=== PATIENT | female | born 1985 | race Caucasian/White ===

== ENCOUNTER 2018-02-16 13:08 | Emergency (ER) | payer MEDICAID ==
[~2018-02-16] VITALS: Ht 172.7 cm; Wt 92.5 kg
[~2018-02-16 13:08] MED LIST: ATOR10TA87 PO; ESCI10TA45 PO; GENT5DRO4 EACHEYE; HYDR-568 PO; HYDR-569 PO; MAGN296S50 PO; METH500T PO; SYN0.025T PO
[2018-02-16 13:17] VITALS: BP 128/66
== END 2018-02-16 14:06 | disposition home or self-care (01) ==
LOC: ER 13:08
DX: O26.893 Other specified pregnancy related conditions, third trimester (principal); G56.03 Carpal tunnel syndrome, bilateral upper limbs; E78.00 Pure hypercholesterolemia, unspecified; E03.9 Hypothyroidism, unspecified; F15.10 Other stimulant abuse, uncomplicated; Z3A.35 35 weeks gestation of pregnancy; Z88.1 Allergy status to other antibiotic agents; Z88.8 Allergy status to other drugs, medicaments and biological substances
CPT/HCPCS: 29125; 99284

== ENCOUNTER → 2021-04-10 | Emergency (ER) | payer MEDICAID ==
[~2021-04-10] VITALS: Ht 175.3 cm; Wt 97.7 kg
[~2021-04-10] MED LIST changes: +HYDR-4383 PO; +HYDR-4384 PO; -HYDR-568 PO; -HYDR-569 PO; -MAGN296S50 PO; +MAGN296S70 PO
[2021-04-10 17:05] VITALS: BP 111/60
== END | disposition home or self-care (01) ==
LOC: ER 16:42
DX: S92.514A Nondisplaced fracture of proximal phalanx of right lesser toe(s), initial encounter for closed fracture (principal); E78.00 Pure hypercholesterolemia, unspecified; E03.9 Hypothyroidism, unspecified; E07.9 Disorder of thyroid, unspecified; G89.29 Other chronic pain; F15.90 Other stimulant use, unspecified, uncomplicated; Z90.49 Acquired absence of other specified parts of digestive tract; Z98.891 History of uterine scar from previous surgery; Z79.899 Other long term (current) drug therapy; Z88.8 Allergy status to other drugs, medicaments and biological substances; W22.8XXA Striking against or struck by other objects, initial encounter; Y93.89 Activity, other specified; Y92.89 Other specified places as the place of occurrence of the external cause; Y99.8 Other external cause status
CPT/HCPCS: 73630; 99283

== ENCOUNTER → 2021-04-27 | Emergency (ER) | payer MEDICAID ==
[~2021-04-27] VITALS: Ht 172.7 cm; Wt 97.7 kg
[2021-04-27 10:09] VITALS: BP 116/71
== END | disposition left against medical advice (07) ==
LOC: ER 09:37
DX: K13.79 Other lesions of oral mucosa (principal); Z53.21 Procedure and treatment not carried out due to patient leaving prior to being seen by health care provider

== ENCOUNTER 2021-07-18 07:30 | Emergency (ER) | payer MEDICAID ==
[~2021-07-18] VITALS: Ht 172.7 cm; Wt 105.0 kg
[2021-07-18 07:43] VITALS: BP 134/82
[2021-07-18] MEDS ORDERED: LIDO20SO16 PO (09:27)
== END 2021-07-18 09:28 | disposition home or self-care (01) ==
LOC: ER 07:31
DX: J02.9 Acute pharyngitis, unspecified (principal); B34.9 Viral infection, unspecified; R05.9 Cough, unspecified; E78.00 Pure hypercholesterolemia, unspecified; E03.9 Hypothyroidism, unspecified; G89.29 Other chronic pain; F41.9 Anxiety disorder, unspecified; F32.9 Major depressive disorder, single episode, unspecified; F15.90 Other stimulant use, unspecified, uncomplicated; Z90.89 Acquired absence of other organs; Z98.890 Other specified postprocedural states; Z88.6 Allergy status to analgesic agent; Z88.8 Allergy status to other drugs, medicaments and biological substances; Z79.2 Long term (current) use of antibiotics; Z79.899 Other long term (current) drug therapy
CPT/HCPCS: 71045; 99283

== ENCOUNTER 2021-08-28 13:56 | Emergency (ER) | payer MEDICAID ==
[~2021-08-28] VITALS: Ht 172.7 cm; Wt 103.6 kg
[~2021-08-28 13:56] MED LIST changes: +LIDO20SO16 PO
[2021-08-28 14:06] VITALS: BP 124/67
[2021-08-28] MEDS ORDERED: MUPI22OI30 TOP (14:29)
[2021-08-28] MEDS ORDERED: AMOX-422 PO (14:29)
== END 2021-08-28 14:35 | disposition home or self-care (01) ==
LOC: ER 13:56
DX: L01.09 Other impetigo (principal); R23.8 Other skin changes; E78.00 Pure hypercholesterolemia, unspecified; E03.9 Hypothyroidism, unspecified; G89.29 Other chronic pain; F41.9 Anxiety disorder, unspecified; F32.9 Major depressive disorder, single episode, unspecified; F15.90 Other stimulant use, unspecified, uncomplicated; Z90.89 Acquired absence of other organs; Z98.890 Other specified postprocedural states; Z88.6 Allergy status to analgesic agent; Z88.8 Allergy status to other drugs, medicaments and biological substances; Z79.2 Long term (current) use of antibiotics; Z79.899 Other long term (current) drug therapy
CPT/HCPCS: 99283

== ENCOUNTER 2025-07-28 00:28 | Emergency (ER) | payer MEDICAID ==
[~2025-07-28] VITALS: Ht 172.7 cm; Wt 88.0 kg
[~2025-07-28 00:28] MED LIST changes: +GEN0.3OS EACHEYE; -GENT5DRO4 EACHEYE; -MAGN296S70 PO; +MAGN296S89 PO
--- NOTE | 2025-07-28 03:14 | Physician Documentation ---
History of Present Illness General Chief Complaint: Eye Pain Stated Complaint: EYE PAIN Time Seen by MD: 03:09 Primary Medical Doctor: WILLEM TREVINO History of Present Illness Initial Comments The patient is a 40-year-old female who works as [employer] who has had worsening right eye pain and redness for the last day states he has got worse over last 6 hours. The patient denies any trauma. The patient has had some tearing from the right eye. The patient's symptoms are mild to moderate and persistent. The patient denies any visual changes or blurred vision. Medication Reconciliation Allergies: Coded Allergies: levothyroxine sodium (Verified Allergy, Unknown, 02/06/15) tramadol (Verified Allergy, Unknown, 02/06/15) Scheduled Atorvastatin Calcium* (Lipitor*), 10 MG PO QAM, (Reported) Escitalopram Oxalate* (Lexapro*), 30 MG PO DAILY, (Reported) Gentamicin Sulfate (Gentak), 2 DROP EACHEYE QID Hydrocodone Bit/Acetaminophen ([place] 7.5-325 Tablet), 1 EACH PO TID, (Reported) Levothyroxine Sodium* (Synthroid*), 50 MCG PO DAILY, (Reported) Lidocaine Hcl (Xylocaine Viscous), 5 ML PO BID Magnesium Citrate (Magnesium Citrate), 300 ML PO DRINK X 1 Methocarbamol (Robaxin), 1 TAB PO Q8H Scheduled PRN Hydrocodone/Acetaminophen ([place] 5-325 Tablet), 1 TABLET PO Q4H PRN for pain Past Medical History Past Medical History: High Cholesterol, Hypothyroidism, Thyroid (unspecified), *MUSCULOSKELETAL*, Chronic Back Pain, Anxiety, Depression Past Surgical History: appendectomy, Other Past Family History: NONCONTRIBUTORY Smoking: Cigarettes Alcohol Use: None Drug Use: methamphetamine Lives with: Family Lives In: Home Occupation: disabled Review of Systems All Other Systems at this time: Reviewed and Negative Physical Exam Physical Exam Vital Signs: Temperature: 97.5, Source: Temporal, Heart Rate: 78, Respiratory Rate: 16, BP: 122/78, Pulse Oximetry: 98, Weight: 88.000 Physical Exam VITALS: Reviewed and as above. GENERAL: Alert, no apparent distress. HEENT: Normocephalic, atraumatic, PERRL, EOMI, dry mucosa, the patient has conjunctival erythema with some slight eyelid swelling to the right eye RESPIRATORY: Lungs clear, normal breath sounds, no respiratory distress. CHEST: No accessory muscle use, no retractions CV: Regular rate, rhythm, no edema, no murmur, No: JVD GI: Soft, non-tender, bowels sounds present, no rebound, guarding, or rigidity BACK: No CVA tenderness, or swelling MUSCULOSKELETAL: No deformities, no edema SKIN: Warm and dry, no rash NEURO: Oriented x4, No motor or sensory deficit PSYCH: Normal mood and affect, no agitation Progress Results/Orders Results/Orders Orders - FAUSTINA SIMMONS MD Ciprofloxacin Ophth Drops (Ciloxan 0.3% (07/28/25 03:15) Naphazoline/Pheniramine Eye (Visine-A Ey (07/28/25 03:15) Vital Signs 07/28/25 01:03 Temp 97.5 Pulse 78 Resp 16 B/P (MAP) 122/78 Pulse Ox 98 Medical Decision Making Findings The patient has a clinical conjunctivitis patient will be given some amoxicillin and Naphcon-A drops the patient will be advised to stay off work until her eyes cleared. Departure Disposition: 01 HOME / SELF CARE / HOMELESS Impression: Primary Impression: Conjunctivitis Qualified Codes: H10.31 - Unspecified acute conjunctivitis, right eye Discharge Instructions: Bacterial Conjunctivitis, Adult Additional Instructions: Use the Ciloxan drops every 4 hours two drops while awake for the next five days, use the Naphcon drops 2 drops every 6 hours for irritation and redness. He can return to work when your eye has cleared in his no longer red. Referrals: NO PRIMARY CARE PROVIDER (PCP) FAUSTINA SIMMONS MD Jul 28, 2025 03:14
[2025-07-28] MEDS ORDERED: naphazoline/pheniramine eye 1 DROP BOTTLE RIGHTEYE PRN (03:15)
[2025-07-28] MEDS: ciprofloxacin 0.3% 2.5ml ophthalmic solution RIGHTEYE ONE (03:26)
[2025-07-28 03:33] VITALS: BP 120/76; PULSE 74; RESP 18; TEMP 98.6; O2SAT 99
== END 2025-07-28 03:35 | disposition home or self-care (01) ==
LOC: ER 00:28
DX: H10.9 Unspecified conjunctivitis (principal); G89.29 Other chronic pain; E78.00 Pure hypercholesterolemia, unspecified; E03.9 Hypothyroidism, unspecified; F17.210 Nicotine dependence, cigarettes, uncomplicated; F15.90 Other stimulant use, unspecified, uncomplicated; F41.9 Anxiety disorder, unspecified; F32.A Depression, unspecified; Z90.49 Acquired absence of other specified parts of digestive tract; Z88.5 Allergy status to narcotic agent; Z88.8 Allergy status to other drugs, medicaments and biological substances; Z79.899 Other long term (current) drug therapy; Z98.890 Other specified postprocedural states
CPT/HCPCS: 99282; 99283

== ENCOUNTER 2025-09-02 08:33 | Emergency (ER) | payer MEDICAID ==
[~2025-09-02] VITALS: Ht 172.7 cm; Wt 84.1 kg
[2025-09-02 08:49] VITALS: BP 100/67; PULSE 77; RESP 18; O2SAT 98
--- NOTE | 2025-09-02 10:29 | Physician Documentation ---
History of Present Illness ~ Chief Complaint: Eye Pain Stated Complaint: R EYE PAIN Time Seen by MD: 09:19 Primary Medical Doctor: WILLEM TREVINO [facility] This is a 40-year-old female who presents with one day of nonpainful redness to her right eye, onset upon waking, patient reports no other acute symptoms or concerns including no itching, discharge, fever, blurred vision, light sens itivity, pain, or recent illness. Reports she is a contact lens wear and did sleep with her contacts in the night before the redness began. Medication Reconciliation Allergies: Coded Allergies: levothyroxine sodium (Verified Allergy, Unknown, 02/06/15) tramadol (Verified Allergy, Unknown, 02/06/15) Scheduled Atorvastatin Calcium* (Lipitor*), 10 MG PO QAM, (Reported) Escitalopram Oxalate* (Lexapro*), 30 MG PO DAILY, (Reported) Gentamicin Sulfate (Gentak), 2 DROP EACHEYE QID Hydrocodone Bit/Acetaminophen ([place] 7.5-325 Tablet), 1 EACH PO TID, (Reported) Levothyroxine Sodium* (Synthroid*), 50 MCG PO DAILY, (Reported) Lidocaine Hcl (Xylocaine Viscous), 5 ML PO BID Magnesium Citrate (Magnesium Citrate), 300 ML PO DRINK X 1 Methocarbamol (Robaxin), 1 TAB PO Q8H Scheduled PRN Hydrocodone/Acetaminophen ([place] 5-325 Tablet), 1 TABLET PO Q4H PRN for pain Past Medical History Past Medical History: High Cholesterol, Hypothyroidism, Thyroid (unspecified), *MUSCULOSKELETAL*, Chronic Back Pain, Anxiety, Depression Past Surgical History: appendectomy, Other Past Family History: NONCONTRIBUTORY Alcohol Use: None Drug Use: methamphetamine Lives with: Family Lives In: Home Occupation: disabled Review of Systems ROS As stated above in the HPI, otherwise all systems are reviewed and negative. Physical Exam Vital Signs: Temperature: 97.5, Heart Rate: 77, Respiratory Rate: 18, BP: 100/67, Pulse Oximetry: 98, Weight: 84.100 Oxygen Flow Rate: 0 Physical Exam VITALS: Reviewed and as above. GENERAL: Alert, nontoxic appearing, no apparent distress. HEENT: Right eye conjunctiva injected with redness greatest on medial aspect of eye, left eye conjunctiva noninjected, PERRLA, EOMI, facial swelling, no facial pain RESPIRATORY: No increased work of breathing, no respiratory distress, speaking in full clear sentences Progress Results/Orders Results/Orders Vital Signs 09/02/25 09/02/25 08:49 10:32 Temp 97.5 97.5 Pulse 77 Resp 18 B/P (MAP) 100/67 Pulse Ox 98 O2 Flow Rate 0 Medical Decision Making Additional information obtaine: N/A Findings This 40-year-old female presented with one day of painless redness to her right eye consistent with uncomplicated conjunctivitis, as patient reports no other acute symptoms or concerns including no pain I have very low suspicion for infective process and if infective process exists I would suspect viral process therefore antibiotics not indicated, given lack of pain reports other symptoms further exam not indicated. Patient provided careful return to care precautions and will employer a watchful waiting strategy. Patient provided home care and follow up instructions. Patient verbalized understanding of all discharge instructions. Ear Diff. Dx: Considerations: Unlikely: Abrasion, Cerumen impaction, Foreign body, Otitis externa, Barotrauma, Otitis media, Perforation, Referred pain- dental, Referred pain-pharyngitis, Referred pain-sinusitis, Referred pain-TMJ syn., Tympanic Membrane Injury, Other Eye Diff. Dx: Considerations: Include: [place], Conjuctivits-allergic, Conjuc tivitis-bacterial, Conjuctivits-chlamydial, Conjuctivitis-viral, Corneal abrasion, Corneal laceration, Corneal ulceration, Foreign body-conjuctiva, Foreign body-corneal, Foreign body-intraocular, Foreign body-lid, Glaucoma, Globe rupture, Hordeolum, Iritis, Orbital cellulitis, Periobital cellulitis, Subconjunctival hem, Ultraviolet keratitis, Uveitis, Vitreous hemorrhage Nose Diff. Dx: Considerations: Unlikely: Abrasion, Anterior nasal bleed, Avulsion, Contusion, Coagulopathy, Fracture-nasal bone, Fracture-septum, Hypertension, Laceration, Other, Posterior nasal bleed, Retained foreign body, Septal hematoma Tooth Diff. Dx: Considerations: Unlikely: Alveolar fracture, Aveolar osteitis, ANUG, Facial cellulitis, Periapical abscess, Periodontal abscess, Post- extraction bleeding, Pulpitis, Trigeminal neuralgia, Tooth-avulsion, Tooth- eruption, Tooth-fracture, Tooth-subluxation, Other Throat Diff Dx: Considerations: Unlikely: AIDS, Epiglottitis, Esophageal candidiasis, Hand foot mouth disease, Herpangina, Herpetic stomatitis, Herpes simplex, Infection mononucleosis, Immunodeficiency, Nils's angina, Peritonsillar abscess, Peritonsillar cellulitis, Pharyngitis-diphtheria, Pharyngitis-strepococcal, Pharyngitis-viral, Thrush, URI, Other Departure Time of Disposition: 10:29 Disposition: 01 HOME / SELF CARE / HOMELESS Impression: Primary Impression: Conjunctivitis Qualified Codes: H10.31 - Unspecified acute conjunctivitis, right eye Condition: Improved Discharge Instructions: Viral Conjunctivitis, Adult Additional Instructions: Given the pain and redness is an one eye, I suspect either local inflammation or early viral illness which antibiotics were not indicated for. If your symptoms worsen especially if pain develops please return to the emergency department. Please follow up with your primary care provider in the next few days. Please return to the emergency department for any new or worsening concerning symptoms. Referrals: NO PRIMARY CARE PROVIDER (PCP) Education Educated: Patient Educated regarding: diagnosis, treatment, prognosis, need for follow up Signature Scribe Signature: No Scribe Attestation: The note accurately reflects work and decisions made by me.HENRI Whitman 09/02/25 21:55 DAISY RUBIO Sep 02, 2025 10:29
[2025-09-02 10:32] VITALS: TEMP 97.5
== END 2025-09-02 10:33 | disposition home or self-care (01) ==
LOC: ER 08:34
DX: H10.9 Unspecified conjunctivitis (principal); E78.00 Pure hypercholesterolemia, unspecified; E03.9 Hypothyroidism, unspecified; G89.29 Other chronic pain; F41.9 Anxiety disorder, unspecified; F32.A Depression, unspecified; F15.90 Other stimulant use, unspecified, uncomplicated; Z90.49 Acquired absence of other specified parts of digestive tract; Z88.8 Allergy status to other drugs, medicaments and biological substances; Z79.899 Other long term (current) drug therapy; Z98.890 Other specified postprocedural states
CPT/HCPCS: 99282